=== PATIENT | female | born 1975 | race Caucasian/White ===

== ENCOUNTER → 2019-08-14 06:49 | Outpatient (CLI) | payer OTHER, SELFPAY ==
--- NOTE | ~2019-08-14 | MM_ITS ---
EXAMINATION: MM screening [facility] BI w jesus HISTORY: Screening mammogram TECHNIQUE: Craniocaudal and mediolateral oblique 3-D tomosynthesis images were obtained and synthetic 2-D images were generated. CAD analysis was submitted and interpreted. COMPARISON: 05/21/2018 BREAST PARENCHYMAL COMPOSITION: There are scattered areas of fibroglandular density. FINDINGS: No significant change to benign-appearing left breast mass. There is no evidence of suspici ous mass, calcification, or architectural distortion to suggest malignancy in either breast. There [place] s been no suspicious interval change. IMPRESSION: 1. No mammographic evidence of malignancy. 2. Recommend routine screening mammography in one year. BI-RADS Category 2: Benign finding(s). Reviewed, dictated and finalized at location A. SIGNALER
== END ==
PROVIDERS: Visit Provider Obstetrics & Gynecology
DX: Z12.31 Encounter for screening mammogram for malignant neoplasm of breast (principal)
CPT/HCPCS: 77063; 77067

== ENCOUNTER → 2020-12-02 10:03 | Outpatient (CLI) | payer OTHER, SELFPAY ==
--- NOTE | ~2020-12-02 | MM_ITS ---
EXAMINATION: MM screening [facility] BI w jesus HISTORY: Screening mammogram TECHNIQUE: Craniocaudal and mediolateral oblique 3-D tomosynthesis images were obtained and synthetic 2-D images were generated. CAD analysis was submitted and interpreted. COMPARISON: 08/14/2019, 05/21/2018 bilateral digital screening mammogram examinations BREAST PARENCHYMAL COMPOSITION: There are scattered areas of fibroglandular density... FINDINGS: Stable mild fibroglandular asymmetry. There is no evidence of suspicious mass, calcificatio n, or architectural distortion to suggest malignancy in either breast. There has been no suspicious i nterval change. Mild device is again noted in the left breast. IMPRESSION: 1. No mammographic evidence of malignancy. 2. Recommend routine screening mammography in one year. BI-RADS Category 1: Negative Reviewed, dictated and finalized at location A.
== END ==
PROVIDERS: PCP Physician Assistant; Visit Provider Obstetrics & Gynecology
DX: Z12.31 Encounter for screening mammogram for malignant neoplasm of breast (principal)
CPT/HCPCS: 77063; 77067

== ENCOUNTER → 2022-03-29 15:33 | Outpatient (CLI) | payer OTHER, SELFPAY ==
--- NOTE | ~2022-03-29 | MM_ITS ---
EXAMINATION: MM screening [facility] BI w jesus HISTORY: Screening TECHNIQUE: Craniocaudal and mediolateral oblique 3-D tomosynthesis images were obtained and synthetic 2-D images were generated. CAD analysis was submitted and interpreted. COMPARISON: Comparison to multiple prior studies sequentially, with oldest reviewed study dated 05/11. BREAST PARENCHYMAL COMPOSITION: There are scattered areas of fibroglandular density. FINDINGS: There is no evidence of suspicious mass, calcification, or architectural distortion to sugg est malignancy in either breast. There has been no suspicious interval change. IMPRESSION: 1. No mammographic evidence of malignancy. 2. Recommend routine screening mammography in one year. BI-RADS Category 1: Negative Reviewed, dictated and finalized at location A.
== END ==
PROVIDERS: PCP Physician Assistant; Visit Provider Obstetrics & Gynecology
DX: Z12.31 Encounter for screening mammogram for malignant neoplasm of breast (principal)
CPT/HCPCS: 77063; 77067

== ENCOUNTER → 2022-04-20 11:23 | Outpatient (CLI) | payer OTHER, SELFPAY ==
--- NOTE | ~2022-04-20 | XR_ITS ---
XR chest 2V DATE: 04/20/2022 11:39 INDICATION: Cough TECHNIQUE: 2 views COMPARISON: 04/24/2014 2 view chest FINDINGS: Left anterior chest wall electronic implant. Mild cardiomegaly. No hilar or mediastinal enlargement. No pulmonary infiltrate or consolidation, ple ural effusion or pulmonary vascular congestion or pneumothorax. Included skeletal structures are unremarkable. IMPRESSION: Mild cardiomegaly; no active pulmonary disease Reviewed, dictated and finalized at location A. 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
== END ==
PROVIDERS: PCP Physician Assistant; Visit Provider Physician Assistant
DX: R05.9 Cough, unspecified (principal); I51.7 Cardiomegaly
CPT/HCPCS: 71046

== ENCOUNTER 2022-08-16 11:06 | Emergency (ER) | payer OTHER, SELFPAY ==
[2022-08-16] VITALS (28 sets, daily range): BP systolic 108–137; BP diastolic 59–93; PULSE 45–58; RESP 13–21; TEMP 36.3; O2SAT 98–100
--- NOTE | ~2022-08-16 | CT_ITS ---
EXAMINATION: CT brain wo con DATE: 08/16/2022 14:37 INDICATION: Dizziness. TECHNIQUE: Computed tomography (CT) of the head was performed without intravenous contrast. The mA wa s adjusted according to patient size. Iterative reconstruction technique was employed. The dose-lengt h product was 605.33 mGy-cm. COMPARISON: Head CT 08/25/2013 FINDINGS: There is no intracranial hemorrhage, acute infarction, or abnormal intracranial mass lesion . The ventricles are normal in size. The orbits are normal. There is mild mucosal thickening in the e thmoid sinuses. The mastoid air cells are normal. IMPRESSION: 1. Normal brain. Reviewed, dictated and finalized at location A. ADMINISTRATIVE TECH IMPRESSION: 1. Normal brain.
--- NOTE | 2022-08-16 11:18 | ECG_ITS ---
Measurements Intervals [place] Rate: 47 P: 34 NH: 158 QRS: 53 QRSD: 86 T: 242 QT: 513 QTc: 456 Interpretive Statements SINUS BRADYCARDIA LEFT VENTRICULAR HYPERTROPHY AND ST-T CHANGE ST-T WAVE ABNORMALITY IN ANTEROLAT/INF LEADS- CONSIDER ISCHEMIA ABNORMAL ECG NO PREVIOUS ECG AVAILABLE FOR COMPARISON Electronically Signed On 08-16-2022 11:48:38 [employer] by Arnold Nelson D.O.
[2022-08-16 11:53] LABS: Basophils Absolute Auto 0.1 K/mm3 (0.0-0.1); Basophils Percent Auto 0.5 % (0.2-1.2); Eosinophils Absolute Auto 0.2 K/mm3 (0-0.3); Eosinophils Percent Auto 1.8 % (0-4.4); Hematocrit 36.4 % (37.0-47.0); Hemoglobin 10.9 g/dL (12.0-15.0); Immature Granulocyte Absolute 0.04 K/mm3 (0.00-0.031); Immature Granulocyte Percent A 0.4 % (0-0.5); Lymphocytes Absolute Auto 1.86 K/mm3 (0.9-3.2); Lymphocytes Percent Auto 19.4 % (18.3-44.2); Mean Corpuscular HGB Conc 29.9 g/dl (32-36); Mean Corpuscular Hemoglobin 23.2 pg (26-34); Mean Corpuscular Volume 77.6 fl (80-100); Mean Platelet Volume 10.3 fl (7.4-10.4); Monocytes Absolute Auto 0.5 K/mm3 (0.1-0.6); Monocytes Percent Auto 5.3 % (2.6-8.5); Neutrophils Percent Auto 72.6 % (45.5-73.1); Platelet Count Result 411 k/mm3 (150-375); Red Blood Count 4.69 M/mm3 (4.2-5.4); Red Cell Distribution Width 17.2 % (11.5-14.5); White Blood Count 9.6 K/mm3 (4.5-10.0)
[2022-08-16 12:02] LABS: Alanine Aminotransferase 28 U/L (6-35); Alkaline Phosphatase 75 U/L (38-126); Anion Gap 6 mmol/L (8-16); Aspartate Amino Transferase 32 U/L (14-36); Bilirubin,Total 0.4 mg/dL (0.2-1.3); Blood Urea Nitrogen 19 mg/dL (7-17); Calcium 8.5 mg/dL (8.4-10.2); Carbon Dioxide 30 mmol/L (22-30); Chloride 101 mmol/L (98-107); Estimated CRCL calculation 101 ml/min; Estimated Glomerular Filt Rate > 60; Glucose 78 mg/dL (65-110); Potassium 4.5 mmol/L (3.4-5.0); Sodium 137 mmol/L (137-145)
--- NOTE | 2022-08-16 12:26 | ECG_ITS ---
Measurements Intervals [place] Rate: 46 P: 41 ND: 156 QRS: 52 QRSD: 89 T: 241 QT: 515 QTc: 454 Interpretive Statements SINUS BRADYCARDIA LEFT VENTRICULAR HYPERTROPHY AND ST-T CHANGE ST-T WAVE ABNORMALITY IN ANTEROLAT/INF LEADS- CONSIDER ISCHEMIA BASELINE ARTIFACT- I, II, AVR, AVL ABNORMAL ECG COMPARED TO ECG 08/16/2022 11:30:13 NO SIGNIFICANT CHANGES Electronically Signed On 08-16-2022 13:21:11 BIG MACHINE CONSULTANT by Arnold Nelson D.O.
[2022-08-16 12:36] LABS: Platelet Estimate Increased (Adequate)
[2022-08-16 12:37] LABS: Anisocytosis 1+ (NORMAL); Hypochromasia 1+ (NORMAL); Ovalocytes 1+ (NORMAL); Poikilocytosis 1+ (NORMAL); Schistocytes Rare (NORMAL)
--- NOTE | 2022-08-16 14:04 | PC.NURSE ---
Pt ambulated to and from restroom with tech and walking at side. pt had no difficulty and steady gait
--- NOTE | 2022-08-16 14:08 | ED.DIZZY ---
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 Patient denies having similar symptoms, Fever, chills, nausea, chest pain, shortness of breath or headache Or focal neurodeficit. History of migraine headache, depression and tachyarrhythmia on propranolol. Does not smoke or drink or uses drugs Related Data Home Medications Medication Instructions Recorded Confirmed amitriptyline 10 mg tablet 10 mg PO QHS 11/21/21 11/21/21 ivermectin 1 % topical cream 1 applic topical DAILY 11/21/21 11/21/21 (Soolantra) lorazepam 1 mg tablet 1 mg PO DAILY PRN 11/21/21 11/21/21 ondansetron 4 mg disintegrating 4 mg PO Q8H 11/21/21 11/21/21 tablet oxymetazoline 1 % topical cream 1 applic topical DAILY 11/21/21 11/21/21 (Rhofade) propranolol 40 mg tablet 40 mg PO Q12H 11/21/21 11/21/21 rizatriptan 10 mg tablet See Rx Instructions PO .COMPLEX 11/21/21 11/21/21 sertraline 50 mg tablet 50 mg PO DAILY 11/21/21 11/21/21 sumatriptan succinate 6 mg/0.5 mL 6 mg subcut ONCE 11/21/21 11/21/21 subcutaneous needle-free injector zolpidem 10 mg tablet 10 mg PO QHS PRN 11/21/21 11/21/21 Allergies Allergy/AdvReac Type Severity Reaction Status Date / Time adhesive Allergy Mild Rash Verified 08/16/22 12:24 gramicidin D Allergy Mild Rash Verified 08/16/22 12:24 ibuprofen Allergy Mild Gastrointestinal Verified 08/16/22 12:24 Upset bacitracin Allergy Unknown Rash Verified 08/16/22 12:24 polymyxin B Allergy Unknown Rash Verified 08/16/22 12:24 BACITRACIN ZINC Allergy Mild Rash Uncoded 08/16/22 12:24 NEOMYCIN SULFATE Allergy Mild Rash Uncoded 08/16/22 12:24 POLYMYXIN B SULFATE Allergy Mild Rash Uncoded 08/16/22 12:24 Review of Systems Review of Systems: All systems reviewed & are unremarkable except as noted in HPI and below PMFSH Past Medical History Medical History Abnormal Pap smear of cervix hx of LEEP - 1998; 08/04/14 ascus neg hpv Anxiety Asthma Depression Heartburn Migraines Pancreatitis Screening mammogram, encounter for Surgical History Surgical History H/O LEEP (~1998) History of ankle surgery 11/09/13 rt ankle reconstruction History of (~2000) History of endoscopy 03/14/16 esophageal stricture, dysphagia History of gastric bypass (~2008) History of hernia repair (07/21/19) Family History Family History Grandparent Hypertension paternal grandfather Diabetes mellitus paternal grandfather Social History Social History Smoking status: Never smoker Alcohol intake: never Substance use: never Substance use type: does not use Living arrangements: other Additional living arrangements comments: Occupation/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: 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
[2022-08-16 14:41] LABS: Appearance Urine Clear (Clear); Bilirubin Urine Negative (Negative); Blood Urine Negative (Negative); Color Urine Yellow (Yellow); Glucose Urine UA Negative (Negative); Ketones Urine Negative (Negative); Leukocyte Esterase Ur Negative LEU/UL (Negative); Nitrate Urine Negative (Negative); Protein Urine Negative (Negative); Specific Grav Ur 1.008 (1.001-1.035); Urobilinogen Urine 0.2 mg/dL (<2.0); pH Urine 5.5 (5.0-9.0)
[2022-08-16] MEDS: ONDANSETRON INJ 4 MG/2 ML VIAL 8 MG IV PUSH (14:42)
[2022-08-16] MEDS: diazePAM (*CRX) 5 MG TABLET PO (14:46)
[2022-08-16] MEDS: MECLIZINE HCL 25 MG TABLET PO (14:46)
[2022-08-16 14:50] LABS: Add Urine Microscopic? NO
--- NOTE | 2022-08-16 16:33 | PC.NURSE ---
pt walked around slowly and safely. pt states still some unsteady feeling erp at bedside, explained return instructions and safe home care and fall prevention. pt and husbands questions answered, they verbalized understanding. pt dressed self and ready to leave.
== END 2022-08-16 17:08 | disposition home or self-care (01) ==
PROVIDERS: Emergency Provider Emergency Medicine; PCP Physician Assistant
DX: H81.10 Benign paroxysmal vertigo, unspecified ear (principal); J45.909 Unspecified asthma, uncomplicated; R12 Heartburn; F32.A Depression, unspecified; F41.9 Anxiety disorder, unspecified; Z98.84 Bariatric surgery status; R00.1 Bradycardia, unspecified; I51.7 Cardiomegaly; R94.31 Abnormal electrocardiogram [ECG] [EKG]
CPT/HCPCS: 36415; 70450; 80053; 81003; 81025; 85025; 93005; 96374; 99284; A9270; J2405

== ENCOUNTER → 2023-06-14 15:03 | Outpatient (CLI) | payer OTHER, SELFPAY ==
--- NOTE | ~2023-06-14 | MM_ITS ---
EXAMINATION: MM screening [facility] BI w jesus HISTORY: Screening mammogram TECHNIQUE: Craniocaudal and mediolateral oblique 3-D tomosynthesis images were obtained and synthetic 2-D images were generated. CAD analysis was submitted and interpreted. COMPARISON: 03/29/2022, 12/02/2020, 08/14/2019 BREAST PARENCHYMAL COMPOSITION: There are scattered areas of fibroglandular density. FINDINGS: No suspicious mass, calcification, or architectural distortion are identified in either justen ast to suggest malignancy. There has been no suspicious interval change. IMPRESSION: 1. No mammographic evidence of malignancy. 2. Recommend routine screening mammography in one year. BI-RADS Category 1: Negative Reviewed, dictated and finalized at location A. INAL ATTORNEY
== END ==
PROVIDERS: PCP Obstetrics & Gynecology; Visit Provider Obstetrics & Gynecology
DX: Z12.31 Encounter for screening mammogram for malignant neoplasm of breast (principal)
CPT/HCPCS: 77063; 77067

== ENCOUNTER 2025-01-16 16:27 | Emergency (ER) | payer OTHER, SELFPAY ==
--- NOTE | ~2025-01-16 | XR_ITS ---
HISTORY: pain from fall COMPARISON: None TECHNIQUE: 3 views of the right foot were performed FINDINGS: No acute fracture or dislocation is appreciated. Mild degenerative disease is noted. The base of the fifth metatarsal is intact. Large calcaneal spur is noted. No significant soft tissue swelling is present. IMPRESSION: Mild degenerative disease, without acute fracture. Reviewed, dictated and finalized at location A.
--- NOTE | ~2025-01-16 | XR_ITS ---
HISTORY: fall, pain COMPARISON: 08/25/2013 TECHNIQUE: 3 views of the right ankle were performed FINDINGS: No acute fracture or dislocation. Redemonstration of small enthesophytes at the anterior tibial plafond, unchanged from prior. The ankle mortise is otherwise preserved. 4 mm lucency within the calcaneus, possibly representing osteoid osteoma for which clinical correlati on regarding symptoms is needed. No significant soft tissue swelling. Bone mineralization is age-appropriate. Large calcaneal spur, increased from 2014. IMPRESSION: Degenerative disease, as detailed above. No acute fracture or dislocation. 4 mm oval-shaped lucency within the calcaneus, possibly representing an osteoid osteoma for which cli nical correlation regarding appropriate symptoms is needed. Reviewed, dictated and finalized at location A. IMPRESSION: Degenerative disease, as detailed above. No acute fracture or dislocation. 4 mm oval-shaped lucency within the calcaneus, possibly representing an osteoid osteoma for which clinical correlation regarding appropriate symptoms is needtrevor benjamin
--- NOTE | ~2025-01-16 | XR_ITS ---
HISTORY: fall lateral pain COMPARISON: None TECHNIQUE: 2 views of the right tibia and fibula were performed FINDINGS: No acute or subacute fracture. Medial and lateral tibiofemoral joint space narrowing is present, incompletely evaluated. Remaining joint spaces are preserved and alignment is maintained. Soft tissues are unremarkable without radiopaque foreign body or significant calcification. Age-appropriate mineralization. IMPRESSION: No acute fracture or dislocation within the right tibia and fibula, as detailed above. Reviewed, dictated and finalized at location A.
--- OUTSIDE RECORDS SUMMARY | 2025-01-16 16:31 | XMS_ITS | Encounter Summary ---
Author Organization [facility] Address [address] [place] [address] Phone Care Team Providers Care Automobile Assembly Supervisor Name Role Phone Kathy Brennan Primary Care Provider Encounter Details Date Type Department Care Team (Late st Contact Info) Description 09/30/2020 Transcribe [facility] [address] [place] [address] Artie Sahni, DO [address] [place] [address] Pre-op testing (Primary Dx) Social History Tobacco Use Types Packs/Day Years Used Date Smoking Tobacco: Never Smokeless Tobacco: Never Alcohol Use Standard Drinks/Week Comments Not Currently 0 (1 standard drink = 0.6 oz pur e alcohol) Comments Unknown Sex and Gender Information Value Date Recorded Sex Assigned at Not on file Legal Sex Female 8:37 AM CDT Gender Identity Not on file Sexual Orientation Not on file COVID-19 Exposure Response Date Recorded In the last month, have you been in contact with someone who was confirmed or suspected to have Coronavirus / COVID-19? No / Unsure 10/03/2020 10:24 AM CDT documented as of this encounter Plan of Treatment Not on file documented as of this encounter Results * HEMOGLOBIN & HEMATOCRIT (H&H) (10/03/2020 10:35 AM CDT) HEMOGLOBIN (HGB) 12.8 12.0 - 15.8 g/dL 10/03/2020 11:02 AM CDT [facility] HEMATOCRIT (HCT) 40.9 36.0 - 47.0 % 10/03/2020 11:02 AM CDT [facility] Blood Venipuncture / Unknown 10/03/2020 10:35 AM CDT 10/03/2020 10:59 AM CDT us Artie Sahni DO HEMATOLOGY ORDERABL ES Final Result [facility] [address] [place] [address] documented in this encounter Visit Diagnoses Diagnosis Pre-op testing- Primary Preoperative examination, unspecified documented in this encounter Care Teams Automobile Assembly Supervisor Relationship Specialty Start Date End Date Kathy Brennan PA PCP - General Family Medicine 09/29/20 documented as of this encounter
--- OUTSIDE RECORDS SUMMARY | 2025-01-16 16:31 | XMS_ITS | Clinical Summary ---
Author Organization [facility] Address [address] [place] [address] Care Team Providers Care Hobbing Machine Operator Name Role Phone Kathy Brennan Primary Care Pr ovider Allergies Active Allergy Reactions Criticality Noted Date Comments Adhesive Tape-Silicones Rash Medium 09/14/2009 Ibuprofen Other (See comments) Low 10/24/2014 Unable to take due to past history of gastric bypass Morphine (Bulk) Nausea only Low 10/11/2016 Dmidfwta-Sgiifxmna-Ls amicidin Rash Medium 04/27/2009 Medications cyanocobalamin (Vitamin B-12) 1,000 mcg/mL injection Inject 1 mL (1,000 mcg total) into the muscle as instructed 2 Active ondansetron ODT (ZOFRAN-ODT) 4 mg disintegrating tablet Take 1 tablet (4 mg total) by mouth as needed 6 Active zolpidem (AMBIEN) 10 mg tabletIndications: Sleep-Onset Insomnia Take 0.5 tablets (5 mg total) by mouth nightly as needed 7 Active propranoloL (INDERAL) 40 mg tablet Take 1 tablet (40 mg total) by mouth 2 (two) times a day Active sertraline (ZOLOFT) 50 mg tablet Take 3 tablets (150 mg total) by mouth daily Active cholecalciferol (VITAMIN D-3) 50,000 unit capsule Take 1 capsule (50,000 Units total) by mouth once a week Active ergocalciferol (VITAMIN D) 50,000 unit capsule 1 capsule (50,000 Units total) once a week Active rosuvastatin (CRESTOR) 5 mg tablet Take 1 tablet (5 mg total) by mouth nightly 2 Active rizatriptan CITY CLERK (MAXALT-CITY CLERK) 10 mg disintegrating tabletIndications: Intractable chronic migraine without aura and with status migrainosus Take 1 tablet (10 mg total) by mouth once as needed for migraine May repeat in 2 hours if unresolved. Do not exceed 30 mg in 24 hours. 27 tablet 3 4 Active amitriptyline (ELAVIL) 10 mg tablet TAKE 2 TABLETS NIGHTLY 180 tablet 3 5 Active gabapentin (NEURONTIN) 300 mg capsuleIndications :Intractable chronic migraine without aura and with status migrainosus TAKE 1 CAPSULE THREE TIMES A DAY 270 capsule 3 5 Active LORazepam (ATIVAN) 1 mg tablet Take 1 tablet (1 mg total) by mouth nightly as needed for anxiety or sleep Active SUMAtriptan (IMITREX) 6 mg/0.5 mL injectionIndicatio ns:Migraine INJECT 6 MG UNDER THE SKIN AT ONSET OF MIGRAINE, MAY REPEAT ONCE AFTER 1 HOUR IF NEEDED, MAXIMUM 12 MG IN 24 HOURS 6 mL 3 5 Active rimegepant (Nurtec ODT) tablet,disintegrat ingIndications:Andrade mallika Take 1 tablet (75 mg total) by mouth daily as needed (migraine) May repeat after 24 hrs if needed. 24 tablet 3 5 Active omeprazole-sodium bicarbonate (ZEGERID) 40-1.1 mg-gram per capsule Take 1 capsule by mouth 2 (two) times a day 60 capsule 11 5 026 Active Active Problems Problem Noted Date Diagnosed Date Colon polyps 08/07/2024 Schatzki's ring 08/08/2023 Gastroesophageal reflux dise ase with esophagitis without hemorrhage 08/08/2023 Anal fissure 07/16/2018 Dysphagia 06/21/2018 Overview (06/21/2018): Added automatically from request for surgery [id number] History of gastric bypass 06/21/2018 Overview (06/21/2018): Added automatically from request for surgery [id number] Intractable chronic migraine without aura and with status migrainosus 12/31/2017 Resolved Problems Problem Noted Date Diagnosed Date Resolved Date Encounter for screening for malignant neoplasm of colon 08/09/2023 08/07/2024 Colon cancer screening 08/08/202308/07 Encounters Date Type Department Care Team Description 12/09/2024 Telephone [facility] General Neurology [address] [facility] 6th [place] [address] [place] [id number] Kelsi Cheng RN 12/02/2024 Telephone [facility] General Neurology [address] [facility] 6[address] [place] [address] Tom Jones RN 11/21/2024 11:00 AM CDT Telemedicine [facility] General Neurology [address] [facility] 6[address] [place] [address] Kacie Kaufman PA Intractable chronic migraine without aura and with status migrainosus (Primary Dx) 11/21/2024 Telephone [facility] General Neurology [address] [facility] 6[address] [place] [address] Kacie Kaufman PA Authorization/Certi fication ([facility] ) 11/19/2024 Telephone [facility] G[facility]ology at [address] [place] [address] Dilia Leblanc MD Med Management from Last 3 Months Surgical History Surgery Date Site/Laterality Comments SHOULDER SURGERY Left ANKLE SURGERY Right GASTRIC BYPASS 06/11/2008 - 06/10/2009 CHOLECYSTECTOMY SECTION COLONOSCOPY 06/11/2016 - 06/10/2017 ANAL SPHINCTEROTOMY 08/09/2018 Dr Sarmiento BSP UPPER GASTROINTESTINAL ENDOSCOPY 08/25/2024 Medical History Medical History Date Comments Migraines Anxiety Obesity PONV (postoperative nausea a nd vomiting) Dysphagia s/p dilatations History of loop recorder 03/2018 rapid heart rate- sees Dr. Mike @ [facility] 03/2018 Asthma reports in good control- seasonal GERD (gastroesophageal reflux disease) Social History Tobacco Use Types Packs/Day Years Used Date Smoking Tobacco: Never Smokeless Tobacco: Never Tobacco Cessation:Counseling Given: Not Answered Alcohol Use Standard Drinks/Week Comments No 0 (1 standard drink = 0.6 oz pur e alcohol) AUDIT-C Answer Date Recorded Q1: How often do you have a drink containing alcohol? Never 08/25/2024 Q2: How many drinks containi ng alcohol do you have on a typical day when you are drinking? Patient does not drink Q3: How often do you have si x or more drinks on one occasion? Never 08/25/2024 Personal Safety Answer Date Recorded Have you ever been in or are you currently in a harmful physical or emotional relationship or is someone making you feel afraid or unsafe? 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 OFFICER Gender Identity Not on file Sexual Orientation Not on file Obstetrics History Last Filed Vital Signs Vital Sign Reading Time Taken Comments Blood Pressure 120/88 09/29/2024 12:02 PM CDT Pulse 65 09/29/2024 12:02 PM CDT Temperature 36.3 C (97.4 F) 09/29/2024 12:02 PM CDT Respiratory Rate 20 09/29/2024 12:02 PM CDT Oxygen Saturation 99% 09/29/2024 12:02 PM CDT Inhaled Oxygen Concentration - - Weight 160.8 kg (354 lb 8 oz) 09/29/2024 12:02 P M CDT Height 162.6 cm (5' 4.02) 09/29/2024 12:02 PM C DT Body Mass Index 60.82 09/29/2024 12:02 PM CDT Plan of Treatment Health Maintenance Due Date Last Done Comments Cervical Cancer Screening 1977 Depression Screening 1977 Hepatitis C Screening 1977 DTaP/Tdap/Td Vaccine (1 - Tdap) 1988 Hepatitis B Screening 09/04/1995 Regular Well Visit/Exam 18-64 09/04/1995 Pneumococcal vaccine <65 (1 of 2 - PCV) 1996 Breast Cancer Screening-Mammogram 12/02/2021 021 Influenza Vaccine (#1) 2025 0, 05/01/2019, 04/25/2017, Additional history exists Colon Cancer Screening-Colonoscopy 09/05/20332023, 01/05/2017 Procedures Procedure Name Priority Date/Time Associated Diagnosis Comments COLONOSCOPY 09/06/2023 9:12 AM CDT from Last 3 Months or Most Recently Relevant to Health Maintenance Results * Colonoscopy (09/06/2023 9:12 AM CDT) Anatomical Region Laterality Modality Other Narrative Procedure Note Dilia Leblanc MD - 09/06/2023 9:12 AM CDT [facility] Endoscopy Lab Patient Name: Blu Hyde Procedure Date: 09/06/2023 9:12 AM Date of : 1975 Admit Type: Outpatient Age: 48 Gender: Female Note Status: Finalized Attending MD: Dilia Leblanc M.D. Procedure Date: 09/06/2023 Procedure: Colonoscopy Indications: Screening for colorectal malignant neoplasm Providers: Dilia Leblanc M.D., Jannie Cali CRNA (Anesthesia Staff), Daisy Diaz RN, Shelbie, Transfer Engineer Referring MD: Medicines: Monitored Anesthesia Care Complications: No immediate complications. Estimated blood loss:None. Estimated Blood Loss: Estimated blood loss was minimal. Procedure: Pre-Anesthesia Assessment: - Prior to the procedure, a History and Physicalwas performed, and patient medications and allergieswere reviewed. The patient's tolerance of previous anesthesia was also reviewed. The risks andbenefits of the procedure and the sedation options and risks were discussed with the patient. All questions were answered, and informed consent was obtained. Prior Anticoagulants: The patient has taken noanticoagulant or antiplatelet agents. ASA Grade Assessment: III -A patient with severe systemic disease. Afterreviewing the risks and benefits, the patient was deemed in satisfactory condition to undergo the procedure. - Prior to the procedure, a History and Physicalwas performed, and patient medications, allergies and sensitivities were reviewed. The patient'stolerance of previous anesthesia was reviewed. - The risks and benefits of the procedure and the sedation options and risks were discussed with the patient. All questions were answered and informed consent was obtained. After I obtained informed consent, the scope was passed under direct vision. Throughout theprocedure, the patient's blood pressure, pulse, and oxygen saturations were monitored continuously. The scopewas passed under direct vision. The Colonoscope was introduced through the anus and advanced to the the terminal ileum. The colonoscopy was performedwithout difficulty. The patient tolerated the procedurewell. The quality of the bowel preparation was evaluated using the BBPS ([place] Bowel Preparation Scale)with scores of: Right Colon = 2 (minor amount ofresidual staining, small fragments of stool and/or opaque liquid, but mucosa seen well), Transverse Colon = 2 (minor amount of residual staining, small fragmentsof stool and/or opaque liquid, but mucosa seen well)and Left Colon = 3 (entire mucosa seen well with no residual staining, small fragments of stool oropaque liquid). The total BBPS score equals 7. The qualityof the bowel preparation was good. The terminal ileum, ileocecal valve, appendiceal orifice, and rectumwere photographed. The quality of the bowel preparationwas good. The bowel preparation used was Clenpiq viasplit dose instruction. Findings: The terminal ileum appeared normal. A 2 mm polyp was found in the ascending colon. The polyp was sessile. The polyp was removed with a jumbo cold forceps. Resection andretrieval were complete. A 2 mm polyp was found in the sigmoid colon. The polyp washyperplastic and sessile. The polyp was removed with a jumbo cold forceps.Resection and retrieval were complete. Non-bleeding internal hemorrhoids were found during retroflexion. The hemorrhoids were mild. The perianal and digital rectal examinations were normal. Impression: - The examined portion of the ileum was normal. - One 2 mm polyp in the ascending colon, removedwith a jumbo cold forceps. Resected and retrieved. - One 2 mm polyp in the sigmoid colon, removed witha jumbo cold forceps. Resected and retrieved. - Non-bleeding internal hemorrhoids. Recommendation: - Patient has a contact number available for emergencies. The signs and symptoms of potential delayed complications were discussed with thepatient. Return to normal activities tomorrow. Written discharge instructions were provided to thepatient. - Resume previous diet. - Continue present medications. - Await pathology results. - Repeat colonoscopy for surveillance based on pathology results. - For your Hemorrhoids, I recommend thefollowing: What are hemorrhoids? Hemorrhoids are enlargedveins in the anus and rectal area. What are symptoms I can experience fromhemorrhoids? Hemorrhoid symptoms include rectal bleeding,itching, swelling, pain and a sensation of somethingabnormal in the area. Are hemorrhoids a serious problem? Hemorrhoids are rarely a serious problem. How can I improve my hemorrhoids and symptoms? 1. Have soft bowel movements - make sure you treatany underlying constipation problem. Eating a diet highin fiber (about 30 grams of fiber a day) and staying hydrated can help with this. 2. Avoid straining on the toilet 3. Avoid prolonged sitting on the toilet 4. Clean the anal area by wiping/blotting gently - avoid aggresive wiping. 5. Wear cotton underwear. 6. Avoid tight clothing. 7. Try a sitz bath - Sit in a few inches of warmwater 3 times a day and after bowel movements 8. Try Tucks / Witch Itzel pads. 9. Try a phenylephrine ointment or suppository(sample brand names Preparation H, Rectacaine). This will shrink swollen hemorrhoids and relieve itching and discomfort for a few hours. 10. Try hydrocortisone rectal cream or suppository (sample brand name: Preparation H Hydrocortisone). Reduces swelling, and pain caused by hemorrhoids.Do not use this for longer than a week. Procedure Code(s): --- Professional --- 77292, Colonoscopy, flexible; with biopsy, singleor multiple Diagnosis Code(s): --- Professional --- Z12.11, Encounter for screening for malignantneoplasm of colon K64.8, Other hemorrhoids D12.2, Benign neoplasm of ascending colon D12.5, Benign neoplasm of sigmoid colon CPT copyright 2020 [employer]. All rights reserved. The codes documented in this report are preliminary and upon plastic frame inserter reviewmay be revised to meet current compliance requirements. Dr. Dilia Leblanc MD [facility] Dilia Leblanc M.D. 09/06/2023 10:26:55 AM Number of Addenda: 0 Note Initiated On: 09/06/2023 9:12 AM Dilia Leblanc MD ENDOSCOPY PROCEDURES Final Result from Last 3 Months or Most Recently Relevant to Health Maintenance Insurance [facility] CHOICE PLUS [facility] CHOICE PLUS [facility] CHOICE PLUS Advance Directives For more information, please contact: [phone] * Full Code (Latest Code Status on File) Date Activated Date Inactivated Comments 08/09/2018 11:49 AM 08/09/2018 4:42 PM * Full Code Date Activated Date Inactivated Comments 07/17/2018 6:44 AM 07/17/2018 12:25 PM Care Teams Hobbing Machine Operator Relationship Specialty Start Date End Date Kathy Brennan PA PCP - General 01/05/17
--- OUTSIDE RECORDS SUMMARY | 2025-01-16 16:31 | XMS_ITS | Clinical Summary ---
Author Organization [facility] Address [address] [place] [address] Phone Care Team Providers Care Production Expediter Name Role Phone Kathy Brennan Primary Care Provider Allergies Active Allergy Reactions Criticality Noted Date Comments Morphine Nausea,Vomiting 09/29/2020 Nsaids Other (see Comments) 09/29/2020 AVOID DUE TO GASTRIC BYPASS Other-Environmental Allergen (Not Found In Search) Rash 09/29/2020 ADHESIVE TAPE Medications sertraline (ZOLOFT) 50 MG Tablet Take 150 mg by mouth daily. TAKES THREE 50 MG TABLETS DAILY Active OMEPRAZOLE-SODIU M BICARBONATE PO Take 1 Capsule by mouth 2 times daily. Active zolpidem (Ambien) 10 MG Tablet Take 10 mg by mouth nightly. Active LORazepam (ATIVAN) 1 MG Tablet Take 1 mg by mouth nightly. TAKES 2 TABS Active gabapentin (NEURONTIN) 300 MG Capsule Take 300 mg by mouth 3 times daily. Active Ergocalciferol (VITAMIN D2 PO) Take 50,000 Units by mouth once a week. EVERY SUNDAY Active amitriptyline (ELAVIL) 10 MG Tablet Take 10 mg by mouth nightly. TAKES 4 TABS AT BEDTIME Active propranolol (INDERAL) 40 MG Tablet Take 40 mg by mouth 2 times daily. Active Rizatriptan Benzoate 10 MG Tablet Take 10 mg by mouth once as needed. May repeat in 2 hours in needed Active Ondansetron HCl (ZOFRAN PO) Take 5 mg by mouth as needed. TAKES WHEN HAVING MIGRAINE Active SUMAtriptan (IMITREX) 5 MG/ACT Solution 6 mg by Nasal route See Admin Instructions. [place] the entire contents of one sprayer into a nostril soon after the onset of a migraine headache. A second dose may be sprayed into the other nostril after at least 2 hours if the headache persists. Active Resolved Problems Problem Noted Date Diagnosed Date Resolved Date Plantar fat pad atrophy 10/06/202009/10 Plantar fasciitis, right 10/06/2020 Family History Relation Name Status Comments Father Alive Mother Alive Social History Tobacco Use Types Packs/Day Years Used Date Smoking Tobacco: Never Smokeless Tobacco: Never Alcohol Use Standard Drinks/Week Comments Not Currently 0 (1 standard drink = 0.6 oz pur e alcohol) Comments Unknown Sex and Gender Information Value Date Recorded Sex Assigned at Not on file Legal Sex Female 8:37 AM CDT Gender Identity Not on file Sexual Orientation Not on file Last Filed Vital Signs Vital Sign Reading Time Taken Comments Blood Pressure 128/72 10/06/2020 11:10 AM CDT Pulse 64 10/06/2020 11:10 AM CDT Temperature 36.8 C (98.2 F) 10/06/2020 11:10 AM CDT Respiratory Rate 16 10/06/2020 11:10 AM CDT Oxygen Saturation 95% 10/06/2020 11:10 AM CDT Inhaled Oxygen Concentration - - Weight 145.2 kg (320 lb) 10/06/2020 6:22 AM CDT Height 162.6 cm (5' 4) 10/06/2020 6:22 AM CDT Body Mass Index 54.93 10/06/2020 6:22 AM CDT Plan of Treatment Health Maintenance Due Date Last Done Comments Hepatitis C Virus (HCV) Screening 1975 TdaP Immunization 1977 Hepatitis B Immunization (1 of 3 - 19+ 3-dose series) 1996 Pap Smear 1998 Cervical Cancer Screening (CCS) 09/04/2007 HPV/Cotest 09/04/2007 Cologuard 2022 Colonoscopy 2022 Colorectal Cancer Screening 2022 Immunochemical Fecal Occult Blood 2022 SARS-COV-2 Immunization ( season) 2024 03/10/2021, 08/14/2020, 07/11/2020 Influenza Immunization (#1) 02/09/202504/12, 04/20/2016, 04/19/2016, Additional history exists Respiratory Syncytial Virus (RSV) Immunization (Adult) (1 - 1-dose 75+ series) 2052 Human Papillomavirus (HPV) Immunization Aged Out No longer eligible based on patient's age to complete this topic Meningococcal Immunization (ACWY) Aged Out No longer eligible based on patient's age to complete this topic Pneumococcal Immunization Combined Aged Out No longer eligible based on patient's age to complete this topic Rotavirus Immunization Aged Out No lo nger eligible based on patient's age to complete this topic Medical Devices Implanted Type Area Qi Specialist Device Identifier Shelf Expiration Date Model / Serial / Lot Graft Skin 5x5cm Graftjacket Thk1.5mm Maxforce - [id number] Implanted:Qty: 1 on 10/06/2020 by Anders Montero DPM at [facility] IMPLANT Right: Foot alaTest 10/08/2020 [id number] / [id number] / [id number] Care Teams Production Expediter Relationship Specialty Start Date End Date Kathy Brennan PA PCP - General Family Medicine 09/29/20
--- OUTSIDE RECORDS SUMMARY | 2025-01-16 16:31 | XMS_ITS | Clinical Summary ---
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 Gender Identity Not on file Sexual Orientation Not on file Plan of Treatment Health Maintenance Due Date Last Done Comments DTAP/TDAP/TD VACCINES (1 - Tdap) 1996 HEPATITIS B VACCINES (1 of 3 - 19+ 3-dose series) 08/10 HPV/Cotest (21-29) 1998 CERVICAL CANCER SCREENING 09/04/2007 HPV/Cotest (30-65) 09/04/2007 PAP SMEAR 09/04/2007 BREAST CANCER SCREENING 2017 COLORECTAL SCREENING 2022 Colorectal Cancer Screening 2022 FIT-DNA Q 3 years 2022 FIT/FOBT Q 1 year 2022 Flex Sig/CT Colonography Q 5 years 2022 INFLUENZA VACCINE (#1) 2025 Care Teams Multiple Launch Rocket System Crewmember Relationship Specialty Start Date End Date Tyrone Whitney MD [address] [place] [phone] PCP - General Family Practice 09/02/12
--- OUTSIDE RECORDS SUMMARY | 2025-01-16 16:31 | XMS_ITS | Encounter Summary ---
Author Organization [facility] Address [address] [facility] [place] [address] Phone Care Team Providers Care Knife Operator Name Role Phone Kathy Brennan Primary Care Provider [phone] Encounter Details Date Type Department Care Team (Latest Contact Info) Description 09/29/2020 Transcribe Orders [facility] Preop/Pacu II [address] [place] [address] Anders Montero, DPFroilan [address] [place] [address] Pre-op testing (Primary Dx) Social History Tobacco [...] have Coronavirus / COVID-19? No / Unsure 09/29/2020 2:25 PM CDT documented as of this encounter Plan of Treatment Not on file documented as of this encounter Results * SARS-COV-2 BY MOLECULAR (10/03/2020 10:35 AM CDT) SARSCOV2 NOT DETECTED (Referen ce Range for this test is Not Detected ) [facility] FAST DX 10/04/2020 2:59 PM CDT [facility] Comment:This test was perfor med by a RT-PCR method. Other NASOPHARYNGEAL STRUCTURE / Unknown Non-Phlebotomy Collection / Unknown 10/03/2020 10:35 AM CDT 10/03/2020 11:01 AM CDT Narrative [facility] - 10/04/2020 2:59 PM CDT Authorized Fact Sheets about this test for providers and patients are available at: https://www.fda.gov/medical-devices/vjnsuptym-ypjditzuxg-lrmuxpp-devices/emergen -us e-authorizations us Anders Montero DPM MICROBIOLOGY - GENERAL ORDER MICK Final Result [facility] [address] [place] [address], documented in this encounter Visit Diagnoses Diagnosis Pre-op testing- Primary Preoperative examination, unspecified documented in this encounter Care Teams Knife Operator Relationship Specialty Start Date End Date Kathy Brennan PA PCP - General Family Medicine 09/29/20 documented as of this encounter
--- OUTSIDE RECORDS SUMMARY | 2025-01-16 16:31 | XMS_ITS | Clinical Summary ---
Author Organization [facility] Address [address] [place] [address] Care Team Providers Care Prep Person Name Role Phone Kathy Olivier Primary Care Pr ovider Lawrence Mike MD [facility] [phone] Source Comments [facility],non-owned Affiliates and Associated Physician Practices is amultiple site organization consisting of ambulatory clinics and hospital sitesin [place], [place], [place] and [place]. This disclosure is being madepursuant to the Care Everywhere program and may not contain all information available regarding this patient. Last updated 18.[facility] Allergies Active Allergy Reactions Criticality Noted Date Comments Adhesive Sensitivity Rash 09/14/2009 Adhesive tape Ibuprofen 10/24/2014 Morphine Unknown Low 10/11/2016 Eyynomor-Wqabrow-Vmkhfupv Rash 04/27/2009 Nsaids Other 09/29/2020 AVOID DUE TO GASTRIC BYPASS Medications * Be aware that medications may not be up to date on this document. Alwaysverify current medications with the patient. cyanocobalamin, vitamin B-12, injection Inject 1,000 mcg into muscle every 30 days. 3 mL 3 2 Active LORazepam (ATIVAN) 1 MG tablet Take 1 (one) tablet by mouth 2 times daily as needed for Anxiety Active ondansetron, disintegrating, (ZOFRAN ODT) 4 MG tablet Take 1 (one) tablet by mouth every 4 hours as needed for Nausea/Vomiting 0 6 Active rizatriptan, disintegrating, (MAXALT SPANISH SPEAKING BABYSITTER) 10 MG tablet Take 1 (one) tablet by mouth once daily as needed for Migraine (May repeat after 2 hours. Max 30mg/day) Uses when feeling a migraine coming on 3 6 Active sertraline (ZOLOFT) 50 MG tablet Take 3 (three) tablets by mouth once daily 7 Active SUMAtriptan Succinate 6 MG/0.5ML 0.5 mL by Injection route daily as needed - may repeat one time (may inject again in 1 hour, max 2 inj in 24 hrs) Uses when having a migraine 11 7 Active zolpidem (AMBIEN) 10 MG tablet Take 1 (one) tablet by mouth once daily 7 Active vitamin D, ergocalciferol, (DRISDOL) 1.25 MG (20421 UT) capsule Take 1 (one) capsule by mouth every Sunday Active albuterol (PROVENTIL;VENT YESSY) (2.5 MG/3ML) 0.083% nebulizer solution INHALE 3 ML Q 4-6 H BY NEBULIZATION ROUTE PRN 0 Active rosuvastatin (CRESTOR) 5 MG tablet TAKE 1 TABLET BY MOUTH EVERY DAY AT BEDTIME 2 Active gabapentin (Neurontin) 300 MG capsule 1 (one) capsule 3 times daily 3 Active rOPINIRole (Requip) 0.25 MG tablet ropinirole 0.25 mg tablet Active Omeprazole-Sodi um Bicarbonate 40-1100 MGIndications:G astroesophageal reflux disease with esophagitis without hemorrhage Take 1 capsule by mouth 2 times daily Take one twice daily on an empty stomach, 30 - 60 minutes before breakfast and evening meals. 60 capsule 5 3 Active amitriptyline (Elavil) 10 MG tabletIndicatio ns:Irritable bowel syndrome, unspecified type TAKE 4 TABLETS AT BEDTIME 360 tablet 3 3 Active rizatriptan (Maxalt) 5 MG tablet PRN Active prednisoLONE (Prelone) 15 MG/5ML solution Acti ve propranolol (Inderal) 40 MG tablet TAKE 1 TABLET TWICE A DAY 180 tablet 3 4 Active Active Problems Problem Noted Date Diagnosed Date Iron deficiency anemia 05/23/2023 Gastroesophageal reflux dise ase with esophagitis without hemorrhage 11/21/2021 Dysphagia 01/05/2021 Heartburn 01/05/2021 Abdominal pain, left upper quadrant 08/24/2020 Nausea and vomiting 08/24/2020 Elevated liver enzymes 08/07/2019 Epigastric pain 07/15/2019 Iron deficiency anemia 08/27/2018 History of loop recorder 04/07/2018 Tachycardia 10/21/2017 Palpitations 10/21/2017 Salmonella enteritis 07/22/2015 Abdominal pain, acute 08/19/2011 Gastrointestinal perforation 09/13/2009 LLQ pain 05/21/2009 S/P gastric bypass 04/25/2009 Morbid obesity 02/10/2009 Encounters Date Type Department Care Team Description 01/09/2025 12:00 PM CDT Office Visit [facility] [address] 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, [facility] [address] [place] [address] Lawrence Mike MD Palpitations (Primary Dx) 11/12/2024 Travel from Last 3 Months Immunizations Immunization Administration Dates Next Due INFLUENZA VACCINE, QUADR. (F LUZONE; FLULAVAL; FLUARIX; AFLURIA QUADRIVALENT; 6MO+), 0.5 ML (IIV4) 07/23/2015 Family History Medical History Relation Name Comments Heart Failure Mother Hypertension Mother Diabetes - Type 1 Paternal Grandfather Relation Name Status Comments Mother Paternal Grandfather Social History Tobacco Use Types Packs/Day Years Used Date Smoking Tobacco: Never Smokeless Tobacco: Never Tobacco Cessation:Counseling Given: Not Answered Alcohol Use Standard Drinks/Week Comments No 0 (1 standard drink = 0.6 oz pur e alcohol) PHQ-2 Answer Date Recorded Patient Health Questionnaire-2 Score 0 07/18/2023 Comments No Sex and Gender Information Value Date Recorded Sex Assigned at Not on file Legal Sex Female 11:49 AM WAREHOUSE REPRESENTATIVE Gender Identity Not on file Sexual Orientation Not on file Last Filed Vital Signs Vital Sign Reading Time Taken Comments Blood Pressure 118/72 01/09/2025 12:09 PM CDT Pulse 65 01/09/2025 12:09 PM CDT Temperature 36.1 C (97 F) 01/09/2025 12:09 PM CDT Respiratory Rate 18 07/18/2023 3:12 PM WAREHOUSE REPRESENTATIVE Oxygen Saturation 98% 01/09/2025 12:09 PM CDT Inhaled Oxygen Concentration 28% 09/16/2009 2 :23 AM CDT Weight 164.2 kg (362 lb) 01/09/2025 12:09 PM CDT Height 162.6 cm (5' 4) 01/09/2025 12:09 PM CDT Body Mass Index 62.14 01/09/2025 12:09 PM CDT Plan of Treatment Upcoming Encounters Date Type Department Care Team (Late st Contact Info) Description 11/18/2025 10:30 AM CDT Office Visit [facility] [address] [facility], [facility] [address] [place] [address] [place] [id number] [facility] [address] [place] [address] Health Maintenance Due Date Last Done Comments COLOGUARD (AGES 45-75) - COLON CA SCREENING 1977 CT COLONOGRAPHY - COLON CA SCREENING 1977 FIT - COLON CA SCREENING 1977 FLEX SIG - COLON CA SCREENING 1977 MAMMOGRAM 1977 HIV SCREENING 1992 DTAP/TDAP/TD VACCINES (1 - Tdap) 1996 HEPATITIS B VACCINE (1 of 3 - 19+ 3-dose series) 1996 PAP with HPV 09/04/2007 COVID-19 VACCINE (3 - season) 2024 08/14/2020, 07/11/2020 DEPRESSION SCREENING 06/11/2024 06/18/2023 SCREENING FOR DIABETES 11/12/2024 1, 02/19/2020, 08/02/2019, Additional history exists INFLUENZA VACCINE (#1) 2025 0, 05/01/2019, 04/25/2017, Additional history exists ZOSTER VACCINE (1 of 2) 09/04/2027 COLON MONITORING 09/05/2033 09/06/2023 COLONOSCOPY - COLON CA SCREENING 09/05/2033 09/06/2023 Colorectal Cancer Screening 09/05/2033 HEPATITIS C SCREENING Completed 07/17/2019 HIB VACCINE Aged Out No longer eligi ble based on patient's age to complete this topic HPV VACCINE Aged Out No longer eligi ble based on patient's age to complete this topic MENINGOCOCCAL (Group B) VACCINE SHARED DECISION-MAKING Aged Out No longer eligible based on patient's age to complete this topic MENINGOCOCCAL GROUPS A/C/Y/W VACCINE Aged Out No longer eligible based on patient's age to complete this topic PNEUMOCOCCAL VACCINE Aged Out No long er eligible based on patient's age to complete this topic Procedures Procedure Name Priority Date/Time Associated Diagnosis Comments COMPREHENSIVE METABOLIC PANEL STAT 08/24/2020 12:45 PM CDT HEPATITIS SCREEN ACUTE STAT 0 10:24 AM WAREHOUSE REPRESENTATIVE Epigastric pain from Last 3 Months or Most Recently Relevant to Health Maintenance Results * (ABNORMAL) COMPREHENSIVE METABOLIC PANEL (08/24/2020 12:45 PM CDT) Glucose 81 70 - 105 mg/dL 08/24/2020 1:23 PM CDT [facility] Sodium 139 136 - 145 mmol/L 08/24/2020 1:23 PM CDT [facility] Potassium 4.3 3.5 - 5.1 mmol/L 08/24/2020 1:23 PM CDT [facility] Chloride 105 98 - 107 mmol/L 08/24/2020 1:23 PM CDT [facility] CO2 26 23 - 31 mmol/L 08/24/2020 1:23 PM CDT [facility] Calcium 7.9(L) 8.4 - 10.4 mg/dL 08/24/2020 1:23 PM CDT [facility] Anion Gap 8 8 - 18 mmol/L 08/24/2020 1:23 PM CDT [facility] Comment:Attention clinician: Reference Range change. BUN 13 7 - 18.7 mg/dL 08/24/2020 1:23 PM CDT [facility] Creatinine 0.84 0.57 - 1.11 mg/dL 08/24/2020 1:23 PM CDT [facility] Alkaline Phosphatase 69 40 - 150 U/L 08/24/2020 1:23 PM CDT [facility] Comment:Attention clinician: Reference Range change. ALT 32 0 - 61 U/L 08/24/2020 1:23 PM CDT [facility] AST 26 5 - 34 U/L 08/24/2020 1:23 PM CDT [facility] Protein Total 6.8 6.4 - 8.3 gm/dL 08/24/2020 1:23 PM CDT [facility] Albumin 3.7 3.5 - 5.2 gm/dL 08/24/2020 1:23 PM CDT [facility] Bilirubin Total 0.3 0.2 - 1.2 mg/dL 08/24/2020 1:23 PM CDT [facility] Comment:Attention clinician: Reference Range change. eGFR by MDRD >60 >60 mL/min/1.7 3m2 08/24/2020 1:23 PM CDT [facility] eGFR by MDRD >60 >60 mL/min/1.7 3m2 08/24/2020 1:23 PM CDT [facility] Blood BLOOD SPECIMEN / Unknown Venipuncture / Unknown 08/24/2020 12:45 PM CDT 08/24/2020 1:05 PM CDT us Lo Middleton PA-C LAB - CHEMISTRY ORDERABL ES Final Result [facility] [address] [place] [address] * HEPATITIS SCREEN ACUTE (07/17/2019 10:24 AM WAREHOUSE REPRESENTATIVE) HAV Antibody IgM Non Reactive Non Reactive 07/17/2019 12:02 PM WAREHOUSE REPRESENTATIVE [facility] HBsAg Non Reactive Non Reactive 07/17/2019 12:02 PM WAREHOUSE REPRESENTATIVE [facility] HBc Antibody IgM Non Reactive Non Reactive 07/17/2019 12:02 PM WAREHOUSE REPRESENTATIVE [facility] HCV Antibody Screen Non Reactive Non Reactive 07/17/2019 12:02 PM WAREHOUSE REPRESENTATIVE [facility] Blood BLOOD SPECIMEN / Unknown Venipuncture / Unknown 07/17/2019 10:24 AM WAREHOUSE REPRESENTATIVE 07/17/2019 10:28 AM WAREHOUSE REPRESENTATIVE Narrative [facility] - 07/17/2019 12:02 PM WAREHOUSE REPRESENTATIVE Non Reactive - Antibodies to Hepatitis C virus (HCV) were not detected, result does not exclude early acute HCV infection. 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 Adv Directive/Living Will/POA 05/15/2009 11:18 AM * Full Code (Latest Code Status on File) Date Activated Date Inactivated Comments 08/24/2020 10:01 PM 08/26/2020 4:43 PM * Full Code Date Activated Date Inactivated Comments 07/16/2019 4:01 AM 07/20/2019 2:58 PM * Full Code Date Activated Date Inactivated Comments 07/22/2015 2:53 PM 07/27/2015 7:27 PM * Full Code Date Activated Date Inactivated Comments 09/13/2009 1:00 PM 09/17/2009 2:36 AM * Full Code Date Activated Date Inactivated Comments 04/28/2009 2:40 PM 05/01/2009 4:00 AM Care Teams Prep Person Relationship Specialty Start Date End Date Kathy Olivier PA [address] [place] [id number] PCP - General Physician Blade Operator 07/22/15 [place] [id number] [address] Consulting Physician Cardiac Electrophysiology 01/05/21
[2025-01-16 16:41] VITALS: BP 160/87; PULSE 64; RESP 18; TEMP 37; O2SAT 96
--- NOTE | 2025-01-16 17:12 | ED_ITS ---
HPI - Extremity Injury (Lower) General Chief Complaint: Extremity Injury, Lower Stated Complaint: right lower ext injury Time Seen by Provider: 01/16/25 16:42 Source: patient and RN notes reviewed Mode of arrival: ambulatory Limitations: no limitations History of Present Illness HPI Narrative: 49-year-old female Presents Express Care complaining of injury to right lower leg. 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 When she fell she injured her right lower leg. Patient denies hitting her head, any loss of conscious, neck pain, back pain, dizziness, lightheadedness, nausea, vomiting, or any other symptoms. Patient denies any numbness, tingling or any other injuries. Patient reports having a hard time bear weight on her right lower leg. Patient complaints of right tibia/fibula pain, right ankle pain, right foot pain. Patient has a history of GI problems she states. Related Data Home Medications ?Medication ?Instructions ?Recorded ?Confirmed ?Last Taken ?Type lorazepam 1 mg tablet 1 mg PO DAILY PRN 11/21/21 05/13/24 Unknown History ondansetron 4 mg disintegrating 4 mg PO Q8H 11/21/21 05/13/24 Unknown History tablet propranolol 40 mg tablet 40 mg PO Q12H 11/21/21 05/13/24 Unknown History rizatriptan 10 mg tablet See Rx Instructions PO .COMPLEX 11/21/21 05/13/24 Unknown History sumatriptan succinate 6 mg/0.5 mL 6 mg subcut ONCE 11/21/21 05/13/24 Unknown History subcutaneous needle-free injector gabapentin 100 mg capsule 200 mg PO TID 05/08/23 05/13/24 Unknown History amitriptyline 10 mg tablet 20 mg PO QHS 05/13/24 05/13/24 Unknown History sertraline 50 mg tablet 150 mg PO DAILY 05/13/24 05/13/24 Unknown History zolpidem 10 mg tablet 5 mg PO QHS PRN 05/13/24 05/13/24 Unknown History albuterol 90 mcg-budesonide 80 2 inh inhalation Q4-6H PRN 01/02/25 01/02/25 Unknown History mcg/actuation HFA aerosol inhaler (Airsupra) albuterol sulfate 2.5 mg/3 mL 2.5 mg inhalation Q6H PRN 01/02/25 01/02/25 Unknown History (0.083 %) solution for nebulization Allergies Allergy/AdvReac Type Severity Reaction Status Date / Time adhesive Allergy Mild Rash Verified 01/02/25 14:19 gramicidin D Allergy Mild Rash Verified 01/02/25 14:19 ibuprofen Allergy Mild Gastrointestinal Verified 01/02/25 14:19 Upset bacitracin Allergy Unknown Rash Verified 01/02/25 14:19 polymyxin B Allergy Unknown Rash Verified 01/02/25 14:19 morphine AdvReac Intermediate Nausea and Verified 01/16/25 16:41 Vomiting NSAIDS (Non-Steroidal AdvReac Intermediate bleeding Verified 01/16/25 16:41 Anti-Inflamma BACITRACIN ZINC Allergy Mild Rash Uncoded 05/13/24 14:31 NEOMYCIN SULFATE Allergy Mild Rash Uncoded 05/13/24 14:31 POLYMYXIN B SULFATE Allergy Mild Rash Uncoded 05/13/24 14:31 Review of Systems Review of Systems: CONSTITUTIONAL: Denies fever, chills, or sweats. EYES: Denies visual changes, redness, or discharge. ENT: Denies rhinorrhea, congestion, sore throat, or otalgia. CARDIOVASCULAR: Denies chest pain, palpitations, dizziness, lightheadedness or edema. RESPIRATORY: Denies cough or dyspnea. GASTROINTESTINAL: Denies abdominal pain, nausea, vomiting, or diarrhea. GENITOURINARY: Denies dysuria or hematuria. SKIN: Denies rash, wound, or itching. MUSCULOSKELETAL: Denies back pain, joint pain, or myalgia. Positive for right lower leg injury. NEUROLOGIC: Denies headache, loss of consciousness, seizures, numbness, or weakness. PSYCHIATRIC: Denies anxiety or depression. All other systems reviewed are negative, except as documented in HPI. [facility] Past Medical History Medical History (Updated 01/16/25 @ 18:28 by Cyrus Hopson APRN) Screening mammogram, encounter for Pancreatitis Migraines Heartburn Depression Anxiety Asthma Abnormal Pap smear of cervix hx of LEEP - 1998; 08/04/14 ascus neg hpv Surgical History Surgical History History of hernia repair (07/21/19) History of endoscopy 03/14/16 esophageal stricture, dysphagia History of ankle surgery 11/09/13 rt ankle reconstruction History of gastric bypass (~2008) History of (~2000) H/O LEEP (~1998) Family History Family History Grandparent Hypertension paternal grandfather Diabetes mellitus paternal grandfather Social History Social History Smoking status: Never smoker Second hand tobacco smoke exposure: No Alcohol intake: never Substance use: never Substance use type: does not use Do You Feel Safe in your Home?: Yes Lack of Transportation: No Lack of Food: Never True Current Housing: I Have Housing Concerned About Future Housing: No Difficulty Paying Gas/Electric Bills: No Difficulty Paying for Meds: No Currently Unemployed: No Education: Master's Degree or Higher Difficulty w/ Childcare or Family Care: No Living arrangements: with family Additional living arrangements comments: 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 There is no relevant family history pertinent to the patient complaint. Exam Narrative: GENERAL: This is a well-nourished, well-developed adult, in no apparent distress. They are non ill-appearing, nontoxic appearing. Patient is morbidly obese. Physical exam is limited due to large body habitus. HEAD: normocephalic, atraumatic. EYES: Sclera clear/white. Vision is grossly intact. Conjunctiva normal. Extraocular movement intact. EARS: External ears normal Hearing grossly intact. NOSE: External nose normal THROAT: Mucous membranes moist NECK: Neck supple CARDIOVASCULAR: Regular rate and rhythm RESPIRATORY: Respiratory rate normal, respiratory effort nonlabored, no respiratory distress NEURO: awake, alert, and oriented to person, place and time. There were no obvious focal neurologic abnormalities. EXTREMITIES: Right lower leg below the knee: No obvious deformity, injury, swelling, bruising, redness. Range of motion limited due to pain. There is tenderness of the patient throughout the lateral lower leg below the knee, pain throughout the ankle, and plantar surface of foot. Capillary refill less than 3 seconds. Right pedal Pulse 2 +palpable. Normal sensation. Neurovascular status intact distal injury. Negative Garg's test. Patient will color toes BACK: Nontender without deformity. Course Course Emergency Course: Portions of this record may have been created with voice recognition software Vital Signs Vital signs: Vital Signs Temperature 98.6 F 01/16/25 16:41 Pulse Rate 64 01/16/25 16:41 Respiratory Rate 18 01/16/25 16:41 Blood Pressure 160/87 H 01/16/25 16:41 Pulse Oximetry 96 01/16/25 16:41 Oxygen Delivery Room Air 01/16/25 16:41 Temperature 98.6 F 01/16/25 16:41 Pulse Rate 64 01/16/25 16:41 Respiratory Rate 18 01/16/25 16:41 Blood Pressure 160/87 H 01/16/25 16:41 Pulse Oximetry 96 01/16/25 16:41 Oxygen Delivery Room Air 01/16/25 16:41 Reviewed MDM - Extremity Injury (Lower) MDM Narrative Medical decision making narrative: Will obtain x-ray imaging of patient's right tibia/fibula, right ankle, right foot. Patient given [place] for pain. Patient has the pain is somewhat improved after [place]. X-ray of right tibia/fibula, right ankle, right foot are negative for any fractures or acute findings. 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 Will have patient follow-up with PCP about the incidental finding. Patient given Ankit wrap for compression. She says she cannot bear weight on her right foot to the pain, she says she cannot tolerate crutches. Patient says she has a knee scooter she can use at home to move around. Patient's will drive her home this evening. Discussed physical exam findings. Advised supportive measures and signs/symptoms to go to the ER. Pt is appropriate for outpt treatment and f/u. Differential Diagnosis Differential diagnosis: Likely ankle sprain and strain, ankle fracture and other (Foot fracture, foot sprain, ankle sprain) Imaging Data Radiologist's impression: ITS Impressions Foot X-Ray 01/16/25 18:01 IMPRESSION: Mild degenerative disease, without acute fracture. Tibia/Fibula X-Ray 01/16/25 18:02 IMPRESSION: No acute fracture or dislocation within the right tibia and fibula, as detailed above. Ankle X-Ray 01/16/25 18:04 IMPRESSION: Degenerative disease, as detailed above. No acute fracture or dislocation. 4 mm oval-shaped lucency within the calcaneus, possibly representing an osteoid osteoma for which clinical correlation regarding appropriate symptoms is needed. Critical Care Time Critical Care Time Critical Care Time: No Discharge Plan Discharge Clinical Impression: Injury of right lower extremity Qualifiers: Encounter type: initial encounter Qualified Code(s): S89.91XA - Unspecified injury of right lower leg, initial encounter Patient Disposition: Home Condition: Stable Instructions: Antibiotic Form, Ankle Sprain (ED) Additional Instructions: The x-ray of your right lower leg is negative for any fractures or acute findings. Was an incidental finding to your foot x-ray shows a possible osteoma to the heel bone. Please follow-up with your PCP about this for further evaluation management. Rest and elevate the leg; bear weight as tolerated Apply ice 15-20 minute intervals several times a day Keep it wrapped with ANKIT or use a soft ankle splint Take Tylenol as needed for pain as well, followed instruction on the bottle. Take [place] as needed for severe pains. [place] contains Tylenol so do not exceed more than a 1000 mg of Tylenol at a time, or do not exceed more than 4000 mg of Tylenol in a day. Do not drive or operate machinery while taking [place] as it may make you drowsy. Follow up with your primary care provider in 3-5 days. Patient Language: Cypriot Prescriptions: New hydrocodone-acetaminophen 7.5-325 mg tablet 1 tablet PO Q6H PRN (Reason: pain) Qty: 14 0RF No Action propranolol 40 mg tablet 40 mg PO Q12H sumatriptan succinate 6 mg/0.5 mL needle-free injector 6 mg subcut ONCE Rx Instructions: may repeat dose once in 1 hour if not relieved lorazepam 1 mg tablet 1 mg PO DAILY PRN rizatriptan 10 mg tablet See Rx Instructions PO .COMPLEX Rx Instructions: take 1 tab at onset of headache; if no relief may repeat 1 tab after at least 2 hrs; max = 3 tabs/24 hr PO ondansetron 4 mg tablet,disintegrating 4 mg PO Q8H amitriptyline 10 mg tablet 20 mg PO QHS sertraline 50 mg tablet 150 mg PO DAILY zolpidem 10 mg tablet 5 mg PO QHS PRN gabapentin 100 mg capsule 200 mg PO TID Airsupra 90-80 mcg/actuation HFA aerosol inhaler 2 inh inhalation Q4-6H PRN albuterol sulfate 2.5 mg /3 mL (0.083 %) solution for nebulization 2.5 mg inhalation Q6H PRN Follow-up/Referrals: Anu,TYREE Chavez [Primary Care Provider] - Time of Disposition: 18:28
--- OUTSIDE RECORDS SUMMARY | 2025-01-16 17:19 | XMS_ITS | Encounter Summary ---
Author Organization [facility] Address [address] [facility] [place] [address] Phone Care Team Providers Care Obstetrical Tech Name Role Phone Kathy Brennan Primary Care Provider Encounter Details Date Type Department Care Team (Latest Contact Info) Description 09/29/2020 Transcribe Orders [facility] Preop/Pacu II [address] [place] [address] Anders Montero, DPFroilan [address] [place] [address] Pre-op testing (Primary Dx) Social History Tobacco [...] for this test is Not Detected ) [facility] FAST DX 10/04/2020 2:59 PM CDT [facility] Comment:This test was perfor med by a RT-PCR method. Other NASOPHARYNGEAL STRUCTURE / Unknown Non-Phlebotomy Collection / Unknown 10/03/2020 10:35 AM CDT 10/03/2020 11:01 AM CDT [facility]ative [facility] - 10/04/2020 2:59 PM CDT Authorized Fact Sheets about this test for providers and patients are available at: https://www.fda.gov/medical-devices/uenmubewf-gbvqkvebmq-lhwpkff-devices/emergen -us e-authorizations us nAders Montero DPM MICROBIOLOGY - GENERAL ORDER MICK Final Result [facility] [address] [place] [address], documented in this encounter Visit Diagnoses Diagnosis Pre-op testing- Primary Preoperative examination, unspecified documented in this encounter Care Teams Obstetrical Tech Relationship Specialty Start Date End Date Kathy Brennan PA PCP - General Family Medicine 09/29/20 documented as of this encounter
--- OUTSIDE RECORDS SUMMARY | 2025-01-16 17:19 | XMS_ITS | Clinical Summary ---
Author Organization [facility] Address [address] [place] [address] Care Team Providers Care Cpc Name Role Phone Kathy Brennan Primary Care Pr ovider Allergies Active Allergy Reactions Criticality Noted Date Comments Adhesive Tape-Silicones Rash Medium 09/14/2009 Ibuprofen Other (See comments) Low 10/24/2014 Unable to take due to past history of gastric bypass Morphine (Bulk) Nausea only Low 10/11/2016 Rkkedabu-Ypjqtmsbd-Bp amicidin Rash Medium 04/27/2009 Medications cyanocobalamin (Vitamin [...] total) by mouth nightly 2 Active rizatriptan POSTDOCTORAL FELLOW (MAXALT-POSTDOCTORAL FELLOW) 10 mg disintegrating tabletIndications: Intractable chronic migraine [...] (06/21/2018): Added automatically from request for surgery [id number] History of gastric bypass 06/21/2018 Overview (06/21/2018): Added automatically from request for surgery [id number] Intractable chronic migraine without aura and with status migrainosus 12/31/2017 Resolved Problems Problem Noted Date Diagnosed Date Resolved Date Encounter for screening for malignant neoplasm of colon 08/09/2023 08/07/2024 Colon cancer screening 08/08/202308/07 Encounters Date Type Department Care Team Description 12/09/2024 Telephone [facility] General Neurology [address] [facility] 6th [place] [address] [place] [phone] Kelsi Cheng RN 12/02/2024 Telephone [facility] General Neurology [address] [facility] 6th Floor [address] [place] [address] Tom Jones RN 11/21/2024 11:00 AM CDT Telemedicine [facility] General Neurology [address] [facility] 6th Floor [address] [place] [address] Kacie Kaufman PA Intractable chronic migraine without aura and with status migrainosus (Primary Dx) 11/21/2024 Telephone [facility] General Neurology [address] [facility] 6th Floor [address] [place] [address] Kacie Kaufman PA Authorization/Certi fication ([facility] ) 11/19/2024 Telephone [facility] Gastroenterology at [address] [place] [address] Dilia Leblanc MD Med Management [...] rapid heart rate- sees Dr. Mike @ [facility] 03/2018 Asthma reports in good control- seasonal [...] on file Legal Sex Female 5:17 PM APPLICATION PACKAGING CONSULTANT Gender Identity Not on file Sexual Orientation [...] MD - 09/06/2023 9:12 AM CDT [facility] Endoscopy Lab Patient Name: Blu Hyde Procedure Date: 09/06/2023 9:12 AM Date of : 1975 Admit Type: Outpatient Age: 48 Gender: Female Note Status: Finalized Attending MD: Dilia Leblanc M.D. Procedure Date: 09/06/2023 Procedure: Colonoscopy Indications: Screening for colorectal malignant neoplasm Providers: Dilia Leblanc M.D., Jannie Cali CRNA (Anesthesia Staff), Daisy Diaz RN, Shelbie, Marine Cargo Surveyor Referring MD: Medicines: Monitored Anesthesia Care Complications: [...] bowel preparation was evaluated using the BBPS (Powers Bowel Preparation Scale)with scores of: Right Colon [...] a week. Procedure Code(s): --- Professional --- 49128, Colonoscopy, flexible; with biopsy, singleor multiple Diagnosis Code(s): --- Professional --- Z12.11, Encounter for screening for malignantneoplasm of colon K64.8, Other hemorrhoids D12.2, Benign neoplasm of ascending colon D12.5, Benign neoplasm of sigmoid colon CPT copyright 2020 [employer] [place] [employer]. All rights reserved. The codes documented in this report are preliminary and upon receivable manager reviewmay be revised to meet current compliance requirements. Dr. Dilia Leblanc MD [facility] Dilia Leblanc M.D. 09/06/2023 10:26:55 AM Number of Addenda: 0 Note Initiated On: 09/06/2023 9:12 AM Dilia Leblanc MD ENDOSCOPY PROCEDURES Final Result from Last 3 Months or Most Recently Relevant to Health Maintenance Insurance [facility]O Address: [facility] [address] [place] [address] [facility]O Address: [place] [address] [facility] CHO[facility] H[facility]/PPO Address: [place] [address] Advance Directives For more information, please contact: [phone] * Full Code (Latest Code Status on File) Date Activated Date Inactivated Comments 08/09/2018 11:49 AM 08/09/2018 4:42 PM * Full Code Date Activated Date Inactivated Comments 07/17/2018 6:44 AM 07/17/2018 12:25 PM Care Teams Cpc Relationship Specialty Start Date End Date Kathy Brennan PA PCP - General 01/05/17
--- OUTSIDE RECORDS SUMMARY | 2025-01-16 17:19 | XMS_ITS | Clinical Summary ---
Author Organization [facility] Address [address] [facility] [place] [address] Phone Care Team Providers Care Cougar Hunter Name Role Phone Tyrone Whitney MD Primary Care Provider [phone] Social History Tobacco Use Types Packs/Day Years Used Date Smoking Tobacco: Never Assessed Comments Unknown Sex and Gender Information Value Date Recorded Sex Assigned at Not on file Legal Sex Female 3:06 AM CEO AND FOUNDER Gender Identity Not on file Sexual Orientation [...] 2022 INFLUENZA VACCINE (#1) 2025 Care Teams Cougar Hunter Relationship Specialty Start Date End Date Tyrone Whitney MD [address] [place] [phone] PCP - General Family Practice 09/02/12
--- OUTSIDE RECORDS SUMMARY | 2025-01-16 17:19 | XMS_ITS | Clinical Summary ---
Author Organization [facility] Address [address] [place] [address] Care Team Providers Care Regional Owner Operator Truck Driver Name Role Phone Kathy Olivier Primary Care Pr ovider Lawrence Mike MD [facility] [phone] Source Comments [facility],non-owned Affiliates and Associated Physician Practices is amultiple site organization consisting of ambulatory clinics and hospital sitesin [place], [place], [place] and [place]. This disclosure is being madepursuant to the Care Everywhere program and may not contain all information available regarding this patient. Last updated 18.[facility] Allergies Active Allergy Reactions Criticality Noted Date Comments Adhesive Sensitivity Rash 09/14/2009 Adhesive tape Ibuprofen 10/24/2014 Morphine Unknown Low 10/11/2016 Tetfspnp-Cqutqsp-Tchbmrom Rash 04/27/2009 Nsaids Other 09/29/2020 AVOID DUE [...] Nausea/Vomiting 0 6 Active rizatriptan, disintegrating, (MAXALT TRAFFIC CONTROL SIGNALER) 10 MG tablet Take 1 (one) tablet [...] Active vitamin D, ergocalciferol, (DRISDOL) 1.25 MG (61860 UT) capsule Take 1 (one) capsule by [...] Description 01/09/2025 12:00 PM CDT Office Visit [facility] Weight Management Services [address] [facility] [place] [address] Jere Gurrola MD 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 Travel 11/12/2024 10:15 AM CDT Office Visit [facility] Heart & Vascular Care [address] [facility], [facility] [address] [place] [address] Lawrence Mike MD Palpitations (Primary Dx) 11/12/2024 [...] on file Legal Sex Female 11:49 AM SKIP PIT WORKER Gender Identity Not on file Sexual Orientation Not on file Last Filed Vital Signs Vital Sign Reading Time Taken Comments Blood Pressure 118/72 01/09/2025 12:09 PM CDT Pulse 65 01/09/2025 12:09 PM CDT Temperature 36.1 C (97 F) 01/09/2025 12:09 PM CDT Respiratory Rate 18 07/18/2023 3:12 PM SKIP PIT WORKER Oxygen Saturation 98% 01/09/2025 12:09 PM CDT Inhaled Oxygen Concentration 28% 09/16/2009 2 :23 AM CDT Weight 164.2 kg (362 lb) 01/09/2025 12:09 PM CDT Height 162.6 cm (5' 4) 01/09/2025 12:09 PM CDT Body Mass Index 62.14 01/09/2025 12:09 PM CDT Plan of Treatment Upcoming Encounters Date Type Department Care Team (Late st Contact Info) Description 11/18/2025 10:30 AM CDT Office Visit [facility] Health Heart & Vascular Care [address] [facility], [facility] [address] [place] [address] [place] [address] [facility] [address] [place] [address] Health Maintenance Due Date Last [...] HEPATITIS SCREEN ACUTE STAT 0 10:24 AM SKIP PIT WORKER Epigastric pain from Last 3 Months or [...] - 1.11 mg/dL 08/24/2020 1:23 PM CDT [facility] Alkaline Phosphatase 69 40 - 150 U/L 08/24/2020 1:23 PM CDT [facility] Comment:Attention clinician: Reference Range change. ALT 32 0 - 61 U/L 08/24/2020 1:23 PM CDT [facility] AST 26 5 - 34 U/L 08/24/2020 1:23 PM CDT [facility] Protein Total 6.8 6.4 - 8.3 gm/dL 08/24/2020 1:23 PM CDT [facility] Albumin 3.7 3.5 - 5.2 gm/dL 08/24/2020 1:23 PM CDT [facility] Bilirubin Total 0.3 0.2 - 1.2 mg/dL 08/24/2020 1:23 PM CDT [facility] Comment:Attention clinician: Reference Range change. eGFR by MDRD >60 >60 mL/min/1.7 3m2 08/24/2020 1:23 PM CDT [facility] eGFR by MDRD >60 >60 mL/min/1.7 3m2 08/24/2020 1:23 PM CDT [facility] Blood BLOOD SPECIMEN / Unknown Venipuncture / Unknown 08/24/2020 12:45 PM CDT 08/24/2020 1:05 PM CDT us Lo Middleton PA-C LAB - CHEMISTRY ORDERABL ES Final Result [facility] [address] [place] [address] * HEPATITIS SCREEN ACUTE (07/17/2019 10:24 AM SKIP PIT WORKER) HAV Antibody IgM Non Reactive Non Reactive 07/17/2019 12:02 PM SKIP PIT WORKER [facility] HBsAg Non Reactive Non Reactive 07/17/2019 12:02 PM SKIP PIT WORKER [facility] HBc Antibody IgM Non Reactive Non Reactive 07/17/2019 12:02 PM SKIP PIT WORKER [facility] HCV Antibody Screen Non Reactive Non Reactive 07/17/2019 12:02 PM SKIP PIT WORKER [facility] Blood BLOOD SPECIMEN / Unknown Venipuncture / Unknown 07/17/2019 10:24 AM SKIP PIT WORKER 07/17/2019 10:28 AM SKIP PIT WORKER Narrative [facility] - 07/17/2019 12:02 PM SKIP PIT WORKER Non Reactive - Antibodies to Hepatitis C virus (HCV) were not detected, result does not exclude early acute HCV infection. Igor Miner MD LAB - CHEMISTRY ORDERABLES Fin al Result [facility] [address] [place] [address] from Last 3 Months or Most Recently Relevant to Health Maintenance Insurance [facility] Advance Directives Documents on File Type Date Recorded Patient School Of Nursing Director Expl anation Adv Directive/Living Will/POA 05/15/2009 11:18 [...] 2:40 PM 05/01/2009 4:00 AM Care Teams Regional Owner Operator Truck Driver Relationship Specialty Start Date End Date Kathy Olivier PA [address] [place] [phone] PCP - General Physician Supervisor Boarding 07/22/15 [place] [address] [address] Consulting Physician Cardiac Electrophysiology 01/05/21
--- OUTSIDE RECORDS SUMMARY | 2025-01-16 17:19 | XMS_ITS | Encounter Summary ---
Author Organization [facility] Address [address] [place] [address] Phone Care Team Providers Care Admitting Coordinator Name Role Phone Kathy Brennan Primary Care Provider [phone] Encounter Details Date Type Department Care Team (Late st Contact Info) Description 09/30/[address] [facility] Preop/Pacu II [address] [place] [address] Artie Sahni, DO [address] [place] [address] Pre-op testing (Primary Dx) Social History Tobacco [...] Sahni DO HEMATOLOGY ORDERABL ES Final Result [facility] [place] [address] documented in this encounter Visit Diagnoses Diagnosis Pre-op testing- Primary Preoperative examination, unspecified documented in this encounter Care Teams Admitting Coordinator Relationship Specialty Start Date End Date Kathy Brennan PA PCP - General Family Medicine 09/29/20 documented as of this encounter
--- OUTSIDE RECORDS SUMMARY | 2025-01-16 17:19 | XMS_ITS | Clinical Summary ---
Author Organization [facility] Address [address] [place] [address] Phone Care Team Providers Care Optical Glass Wet Inspector Name Role Phone Kathy Brennan Primary Care [...] mg by Nasal route See Admin Instructions. [place] the entire contents of one sprayer into [...] this topic Medical Devices Implanted Type Area Project Accountant Device Identifier Shelf Expiration Date Model / Serial / Lot Graft Skin 5x5cm Graftjacket Thk1.5mm [employer] - [id number] Implanted:Qty: 1 on 10/06/2020 by Anders Montero DPM at [facility] IMPLANT Right: Foot [employer] 10/08/2020 [id number] / [id number] / [id number] Care Teams Optical Glass Wet Inspector Relationship Specialty Start Date End Date Kathy Brennan PA PCP - General Family Medicine 09/29/20
[2025-01-16] MEDS: HYDROcodone/acetaminophen (*CRX) 5-325 MG TABLET 1 TAB PO (17:22)
== END 2025-01-16 18:52 | disposition home or self-care (01) ==
PROVIDERS: PCP Physician Assistant
DX: S89.91XA Unspecified injury of right lower leg, initial encounter (principal); W08.XXXA Fall from other furniture, initial encounter; F41.8 Other specified anxiety disorders; J45.909 Unspecified asthma, uncomplicated; Z98.84 Bariatric surgery status
CPT/HCPCS: 73590; 73610; 73630; 99284; A9270

== ENCOUNTER 2025-02-04 08:03 | Outpatient (CLI) | payer OTHER, SELFPAY ==
--- OUTSIDE RECORDS SUMMARY | 2025-02-04 08:07 | XMS_ITS | Clinical Summary ---
Author Organization [facility] Address [address] [facility] [place] [address] Care Team Providers Care Airplane Pilot Helper Name Role Phone Kathy Olivier Primary Care Pr ovider Lawrence Mike MD [facility] [phone] Source Comments [facility],non-owned Affiliates and Associated Physician Practices is amultiple site organization consisting of ambulatory clinics and hospital sitesin [place], [place], [place] and [place]. This disclosure is being madepursuant to the Care Everywhere program and may not contain all information available regarding this patient. Last updated 18.[facility] Allergies Active Allergy Reactions Criticality Noted Date Comments Adhesive Sensitivity Rash 09/14/2009 Adhesive tape Ibuprofen 10/24/2014 Morphine Unknown Low 10/11/2016 Czeqozzo-Eechvvw-Epdcyora Rash 04/27/2009 Nsaids Other 09/29/2020 AVOID DUE [...] Nausea/Vomiting 0 6 Active rizatriptan, disintegrating, (MAXALT AUDIO VISUAL TECHNICIAN) 10 MG tablet Take 1 (one) tablet [...] Active vitamin D, ergocalciferol, (DRISDOL) 1.25 MG (18249 UT) capsule Take 1 (one) capsule by [...] 01/09/2025 12:00 PM CDT Office Visit [facility] Weight Management Services [address] [facility], [facility] [address] [place] [address] Jere Gurrola MD 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 Travel 11/12/2024 10:15 AM CDT Office Visit [facility] Heart & Vascular Care [address] [facility], [facility] [address] [place] [address] Lawrence Mike MD Palpitations (Primary Dx) 11/12/2024 [...] on file Legal Sex Female 11:49 AM FARMWORKER EGG PRODUCING FARM Gender Identity Not on file Sexual Orientation Not on file Last Filed Vital Signs Vital Sign Reading Time Taken Comments Blood Pressure 118/72 01/09/2025 12:09 PM CDT Pulse 65 01/09/2025 12:09 PM CDT Temperature 36.1 C (97 F) 01/09/2025 12:09 PM CDT Respiratory Rate 18 07/18/2023 3:12 PM FARMWORKER EGG PRODUCING FARM Oxygen Saturation 98% 01/09/2025 12:09 PM CDT Inhaled Oxygen Concentration 28% 09/16/2009 2 :23 AM CDT Weight 164.2 kg (362 lb) 01/09/2025 12:09 PM CDT Height 162.6 cm (5' 4) 01/09/2025 12:09 PM CDT Body Mass Index 62.14 01/09/2025 12:09 PM CDT Plan of Treatment Upcoming Encounters Date Type Department Care Team (Late st Contact Info) Description 11/18/2025 10:30 AM CDT Office Visit [facility] Health Heart & Vascular Care [address] [facility], [facility] [address] [place] [address] [place] [address] [facility] [address] [place] [address] Health Maintenance Due Date Last [...] HEPATITIS SCREEN ACUTE STAT 0 10:24 AM FARMWORKER EGG PRODUCING FARM Epigastric pain from Last 3 Months or [...] - 1.11 mg/dL 08/24/2020 1:23 PM CDT [facility] Alkaline Phosphatase 69 40 - 150 U/L 08/24/2020 1:23 PM CDT [facility] Comment:Attention clinician: Reference Range change. ALT 32 0 - 61 U/L 08/24/2020 1:23 PM CDT [facility] AST 26 5 - 34 U/L 08/24/2020 1:23 PM CDT [facility] Protein Total 6.8 6.4 - 8.3 gm/dL 08/24/2020 1:23 PM CDT [facility] Albumin 3.7 3.5 - 5.2 gm/dL 08/24/2020 1:23 PM CDT [facility] Bilirubin Total 0.3 0.2 - 1.2 mg/dL 08/24/2020 1:23 PM CDT [facility] Comment:Attention clinician: Reference Range change. eGFR by MDRD >60 >60 mL/min/1.7 3m2 08/24/2020 1:23 PM CDT [facility] eGFR by MDRD >60 >60 mL/min/1.7 3m2 08/24/2020 1:23 PM CDT [facility] Blood BLOOD SPECIMEN / Unknown Venipuncture / Unknown 08/24/2020 12:45 PM CDT 08/24/2020 1:05 PM CDT us Lo Middleton PA-C LAB - CHEMISTRY ORDERABL ES Final Result [facility] [address] [place] [address] * HEPATITIS SCREEN ACUTE (07/17/2019 10:24 AM FARMWORKER EGG PRODUCING FARM) HAV Antibody IgM Non Reactive Non Reactive 07/17/2019 12:02 PM FARMWORKER EGG PRODUCING FARM [facility] HBsAg Non Reactive Non Reactive 07/17/2019 12:02 PM FARMWORKER EGG PRODUCING FARM [facility] HBc Antibody IgM Non Reactive Non Reactive 07/17/2019 12:02 PM FARMWORKER EGG PRODUCING FARM [facility] HCV Antibody Screen Non Reactive Non Reactive 07/17/2019 12:02 PM FARMWORKER EGG PRODUCING FARM [facility] Blood BLOOD SPECIMEN / Unknown Venipuncture / Unknown 07/17/2019 10:24 AM FARMWORKER EGG PRODUCING FARM 07/17/2019 10:28 AM FARMWORKER EGG PRODUCING FARM Narrative [facility] - 07/17/2019 12:02 PM FARMWORKER EGG PRODUCING FARM Non Reactive - Antibodies to Hepatitis C virus (HCV) were not detected, result does not exclude early acute HCV infection. Igor Miner MD LAB - CHEMISTRY ORDERABLES Fin al Result [facility] [address] [place] [address] from Last 3 Months or Most Recently Relevant to Health Maintenance Insurance [facility] Advance Directives Documents on File Type Date Recorded Patient Mold Release Worker Expl anation Adv Directive/Living Will/POA 05/15/2009 11:18 [...] 2:40 PM 05/01/2009 4:00 AM Care Teams Airplane Pilot Helper Relationship Specialty Start Date End Date Kathy Olivier PA [address] [place] [phone] PCP - General Physician Manager Lvn 07/22/15 [place] [address] [address] Consulting Physician Cardiac Electrophysiology 01/05/21
--- OUTSIDE RECORDS SUMMARY | 2025-02-04 08:07 | XMS_ITS | Clinical Summary ---
Author Organization [facility] Address [address] [facility] [place] [address] Phone Care Team Providers Care Lead Javascript Developer Name Role Phone Tyrone Whitney MD Primary Care Provider [phone] Social History Tobacco Use Types Packs/Day Years Used Date Smoking Tobacco: Never Assessed Comments Unknown Sex and Gender Information Value Date Recorded Sex Assigned at Not on file Legal Sex Female 3:06 AM REHAB NURSING TECH Gender Identity Not on file Sexual Orientation [...] 2022 INFLUENZA VACCINE (#1) 2025 Care Teams Lead Javascript Developer Relationship Specialty Start Date End Date Tyrone Whitney MD [address] [place] [phone] PCP - General Family Practice 09/02/12
--- OUTSIDE RECORDS SUMMARY | 2025-02-04 08:07 | XMS_ITS | Clinical Summary ---
Author Organization [facility] Address [address] [place] [address] Care Team Providers Care Building Rental Manager Name Role Phone Kathy Brennan Primary Care Pr ovider Allergies Active Allergy Reactions Criticality Noted Date Comments Adhesive Tape-Silicones Rash Medium 09/14/2009 Ibuprofen Other (See comments) Low 10/24/2014 Unable to take due to past history of gastric bypass Morphine (Bulk) Nausea only Low 10/11/2016 Hquhwcxw-[place] amicidin Rash Medium 04/27/2009 Medications cyanocobalamin (Vitamin [...] total) by mouth nightly 2 Active rizatriptan SNOW MAKER (MAXALT-SNOW MAKER) 10 mg disintegrating tabletIndications: Intractable chronic migraine [...] (06/21/2018): Added automatically from request for surgery [id number] History of gastric bypass 06/21/2018 Overview (06/21/2018): Added automatically from request for surgery [id number] Intractable chronic migraine without aura and with status migrainosus 12/31/2017 Resolved Problems Problem Noted Date Diagnosed Date Resolved Date Encounter for screening for malignant neoplasm of colon 08/09/2023 08/07/2024 Colon cancer screening 08/08/202308/07 Encounters Date Type Department Care Team Description 12/09/2024 Telephone [facility] [address] [place] [address] [place] [address] Kelsi Cheng RN 12/02/2024 Telephone [facility] [address] [place] [address] Tom Jones RN 11/21/2024 11:00 AM CDT Telemedicine [facility] [address] [place] [address] Kacie Kaufman PA Intractable chronic migraine without aura and with status migrainosus (Primary Dx) 11/21/2024 Telephone [facility] [address] [place] [address] Kacie Kaufman PA Authorization/Certi fication ([facility] ) 11/19/2024 Telephone [facility] at [address] [place] [address] Dilia Leblanc MD Med Management [...] rapid heart rate- sees Dr. Mike @ [facility] 03/2018 Asthma reports in good control- seasonal [...] on file Legal Sex Female 5:17 PM FIRST OFFICER Gender Identity Not on file Sexual [...] Leblanc MD - 09/06/2023 9:12 AM CDT [facility] Patient Name: Blu Hyde Procedure Date: 09/06/2023 9:12 AM Date of : 1975 Admit Type: Outpatient Age: 48 Gender: Female Note Status: Finalized Attending MD: Dilia Leblanc M.D. Procedure Date: 09/06/2023 Procedure: Colonoscopy Indications: Screening for colorectal malignant neoplasm Providers: Dilia Leblanc M.D., Jannie Cali CRNA (Anesthesia Staff), Daisy Diaz RN, Shelbie, Fund Manager Referring MD: Medicines: Monitored Anesthesia Care Complications: [...] bowel preparation was evaluated using the BBPS (Hendley Bowel Preparation Scale)with scores of: Right Colon [...] a week. Procedure Code(s): --- Professional --- 53052, Colonoscopy, flexible; with biopsy, singleor multiple Diagnosis Code(s): --- Professional --- Z12.11, Encounter for screening for malignantneoplasm of colon K64.8, Other hemorrhoids D12.2, Benign neoplasm of ascending colon D12.5, Benign neoplasm of sigmoid colon CPT copyright 2020 [employer]. All rights reserved. The codes documented in this report are preliminary and upon tower erector reviewmay be revised to meet current compliance requirements. Dr. Dilia Leblanc MD [facility] Dilia Leblanc M.D. 09/06/2023 10:26:55 AM Number of Addenda: 0 Note Initiated On: 09/06/2023 9:12 AM Dilia Leblanc MD ENDOSCOPY PROCEDURES Final Result from Last 3 Months or Most Recently Relevant to Health Maintenance Insurance [facility] PLUS [facility] PLUS [facility] PLUS Advance Directives For more information, please contact: [phone] * Full Code (Latest Code Status on File) Date Activated Date Inactivated Comments 08/09/2018 11:49 AM 08/09/2018 4:42 PM * Full Code Date Activated Date Inactivated Comments 07/17/2018 6:44 AM 07/17/2018 12:25 PM Care Teams Building Rental Manager Relationship Specialty Start Date End Date Kathy Brennan PA PCP - General 01/05/17
--- OUTSIDE RECORDS SUMMARY | 2025-02-04 08:07 | XMS_ITS | Encounter Summary ---
Author Organization [facility] Address [address] [place] [address] Phone Care Team Providers Care Business Support Specialist Name Role Phone Kathy Brennan Primary Care Provider Encounter Details Date Type Department Care Team (Late st Contact Info) Description 09/30/2020 [facility] [address] [place] [address] Artie Sahni, DO [address] [place] [address] Pre-op testing (Primary Dx) Social History Tobacco [...] 15.8 g/dL 10/03/2020 11:02 AM CDT [facility] HEMATOCRIT (HCT) 40.9 36.0 - 47.0 % 10/03/2020 11:02 AM CDT [facility] Blood Venipuncture / Unknown 10/03/2020 10:35 AM CDT 10/03/2020 10:59 AM CDT us Artie Sahni DO HEMATOLOGY ORDERABL ES Final Result [facility] [address] [place] [address] documented in this encounter Visit Diagnoses Diagnosis Pre-op testing- Primary Preoperative examination, unspecified documented in this encounter Care Teams Business Support Specialist Relationship Specialty Start Date End Date Kathy Brennan PA PCP - General Family Medicine 09/29/20 documented as of this encounter
--- OUTSIDE RECORDS SUMMARY | 2025-02-04 08:07 | XMS_ITS | Encounter Summary ---
Author Organization [facility] Address [address] [facility] [place] [address] Phone Care Team Providers Care Electric Motor Tester Assembler Name Role Phone Kathy Brennan Primary Care Provider Encounter Details Date Type Department Care Team (Latest Contact Info) Description 09/29/2020 Transcribe Orders [facility] Preop/Pacu II [address] [place] [address] Anders Montero, DPFroilan [address] [place] [address] Pre-op testing (Primary Dx) Social History Tobacco [...] for this test is Not Detected ) [facility] THERMOFISHER FAST DX 10/04/2020 2:59 PM CDT [facility] Comment:This test was perfor med by a RT-PCR method. Other NASOPHARYNGEAL STRUCTURE / Unknown Non-Phlebotomy Collection / Unknown 10/03/2020 10:35 AM CDT 10/03/2020 11:01 AM CDT [facility]ative [facility] - 10/04/2020 2:59 PM CDT Authorized Fact Sheets about this test for providers and patients are available at: https://www.fda.gov/medical-devices/ksejzbzhd-wcmbvkzpnd-ucofygs-devices/emergen -us e-authorizations us Anders Montero DPM MICROBIOLOGY - GENERAL ORDER MICK Final Result [facility] [address] [place] [address], documented in this encounter Visit Diagnoses Diagnosis Pre-op testing- Primary Preoperative examination, unspecified documented in this encounter Care Teams Electric Motor Tester Assembler Relationship Specialty Start Date End Date Kathy Brennan PA PCP - General Family Medicine 09/29/20 documented as of this encounter
--- OUTSIDE RECORDS SUMMARY | 2025-02-04 08:07 | XMS_ITS | Clinical Summary ---
Author Organization [facility] Address [address] [place] [address] Phone Care Team Providers Care Press Set Up Name Role Phone Kathy Brennan Primary Care [...] mg by Nasal route See Admin Instructions. [place] the entire contents of one sprayer into [...] this topic Medical Devices Implanted Type Area Paralegal Secretary Device Identifier Shelf Expiration Date Model / Serial / Lot Graft Skin 5x5cm Graftjacket Thk1.5mm [employer] - [id number] Implanted:Qty: 1 on 10/06/2020 by Anders Montero DPM at [facility] IMPLANT Right: Foot [employer] 10/08/2020 [id number] / [id number] / [id number] Care Teams Press Set Up Relationship Specialty Start Date End Date Kathy Brennan PA PCP - General Family Medicine 09/29/20
--- NOTE | 2025-02-04 15:12 | WPDPFTINT ---
PFT Procedure Performed PFT Procedure Performed Spirometry with Pre/Post Bronchodilator Plethysmography (Lung Vol) Diffusing Cap (DLCO) Flow Vol Loop PFT Interpretation This is a pulmonary function test with pre and post-bronchodilator spirometry, plethysmography and diffusing capacity. The test was performed and results interpreted in accordance with the 2019 and 2005 ATS/ERS Task Force guidelines respectively using the Global Lung Function Initiative-2012 reference equations. Patient demonstrated good effort and cooperation. Reproducibility criteria were met. The quality of the pre bronchodilator spirometry maneuver was Grade A and post bronchodilator spirometry maneuver was Grade A. Findings: Spirometry: The contour the inspiratory and expiratory flow tracing are normal. The pre bronchodilator FVC is 3.55 L, 100% predicted. The pre bronchodilator FEV1 is 2.61 L, 91% predicted. The pre bronchodilator FEV1: FVC ratio is 74%. The post bronchodilator FVC is 3.59 L, representing a 1% increase. The post bronchodilator FEV1 is 2.69 L, representing a 3% increase. The post bronchodilator FEV1: FVC ratio 75%. Plethysmography: The total lung capacity is 5.20 L, 102% predicted. The functional residual capacity is 1.27 L, 45% predicted. The residual volume is 1.26 L, 73% predicted. Diffusing capacity: The diffusing capacity unadjusted for hemoglobin and carboxyhemoglobin is 19.2, 83% predicted. The diffusing capacity adjusted for alveolar volume is 3.98, 86% predicted. Impression: The spirometry is normal without evidence of an obstructive abnormality. There is no significant improvement after inhaling a single dose of albuterol. The total lung capacity and residual volume are normal with a decreased functional residual capacity. This is an abnormal but nonspecific lung volume pattern. The diffusing capacity is normal. There are no prior studies for comparison
== END 2025-02-04 08:04 | disposition home or self-care (01) ==
PROVIDERS: PCP Physician Assistant; Visit Provider Nurse Practitioner Family
DX: J45.909 Unspecified asthma, uncomplicated (principal)
CPT/HCPCS: 94060; 94726; 94729